=== PATIENT | female | born 1955 ===

== ENCOUNTER 2019-08-04 13:00 | Inpatient (IN) | payer OTHER ==
[~2019-08-04] VITALS: Ht 157.5 cm; Wt 80.3 kg
[2019-08-08] MEDS ORDERED: ENALAPRIL MALEA20 MG (09:26)
[2019-08-08] MEDS ORDERED: SIMVASTATIN20 MG (09:26)
[2019-08-13] MEDS ORDERED: PRILOSEC OTC20 MG PO (14:05)
[2019-08-13] MEDS ORDERED: INTESTINEX680 M1 PO (14:05)
== END 2019-08-13 14:40 | disposition home or self-care (01) | DRG 331 ==
LOC: ADM 13:00 → O/R 08-08 05:48 → SURH 08-08 05:48 → ADM 08-08 13:00 → EDSTATUS 08-08 13:00 → SURH 08-08 13:00
PROVIDERS: ADMIT Surgery
PROC: 0DTN4ZZ Resection of Sigmoid Colon, Percutaneous Endoscopic Approach (ICD-10-PCS; 2019-08-08)
PROC: 07BC4ZX Excision of Pelvis Lymphatic, Percutaneous Endoscopic Approach, Diagnostic (ICD-10-PCS; 2019-08-08)
PROC: 0DJD8ZZ Inspection of Lower Intestinal Tract, Via Natural or Artificial Opening Endoscopic (ICD-10-PCS; 2019-08-08)
PROC: 0DBP4ZZ Excision of Rectum, Percutaneous Endoscopic Approach (ICD-10-PCS; principal; 2019-08-08 07:00)
DX: C18.7 Malignant neoplasm of sigmoid colon (principal); R59.0 Localized enlarged lymph nodes; I10 Essential (primary) hypertension; K91.0 Vomiting following gastrointestinal surgery; Y83.8 Other surgical procedures as the cause of abnormal reaction of the patient, or of later complication, without mention of misadventure at the time of the procedure